=== PATIENT | female | born 1945 | race Caucasian/White ===

== ENCOUNTER 2018-01-30 19:14 | Emergency (ER) | payer BC, MEDICARE ==
[~2018-01-30] VITALS: Ht 167.6 cm; Wt 81.0 kg
[~2018-01-30 19:14] MED LIST: AMLO5TAB2 PO; ASPI81TA23 PO; ESTR0.62 VAGINAL; HYDR12.57 PO; LISI-515 PO; MULTTAB67 PO
[2018-01-30 19:25] VITALS: BP 177/90; PULSE 93; RESP 18; TEMP 99.6; O2SAT 96
--- NOTE | 2018-01-30 19:53 | PD ---
HPI Chief Complaint: Complaint Time Seen by Provider: 19:49 Travel History International Travel<30 days: No Contact w/Intl Traveler<30days: No Traveled to known affect area: No History of Present Illness HPI 72-year-old female patient with history of frequent UTIs, hypertension, presents to the ER today because she states that in the last few days she feels like she has a low-grade fever, notes that her blood pressure was high, and she states that when she does not feel like right right like this, she states that she has a UTI. She denies any abdominal pain, dysuria, vomiting, chest pains, or other symptoms. Modifying Factors: None Associated Signs & Symptoms: Subjective fevers, elevated blood pressure, worried about a UTI Risk Factors: History of frequent UTIs PFSH Past Medical History Arthritis: Yes Blood Disorders: No Anxiety: No Depression: No Cancer: Yes (MELANOMA ABOVE BRA LINE LT SIDE) Cardiovascular Problems: No High Cholesterol: Yes Diabetes: No Endocrine: No Genitourinary: No Hepatitis: No Hiatal Hernia: No Hypertension: Yes Immune Disorder: No Musculoskeletal: Yes (BACK HX BULDGING DISC LOWER BACK) Neurologic: No Psychiatric: No Reproductive: No Respiratory: No Immunizations Current: Yes Thyroid Disease: No Menopausal: Yes Past Surgical History Abdominal Surgery: No Body Medical Devices: NONE Cardiac Surgery: No Ear Surgery: No Endocrine Surgery: No Eye Surgery: Yes (LASER LT EYE) Genitourinary Surgery: No Gynecologic Surgery: Yes (TOTAL HYSTERECTOMY, 2 D&C PRIOR) Hysterectomy: Yes Oral Surgery: No Thoracic Surgery: No Other Surgery: Yes Social History Alcohol Use: No Tobacco Use: No Substance Use: No Allergies-Medications (Allergen,Severity, Reaction): Coded Allergies: diazepam (Unverified Adverse Reaction, Intermediate, 01/30/18) BAD FEELING. "GETS HIGH" Reported Meds & Prescriptions Reported Meds & Active Scripts Active Premarin Vaginal (Estrogens, Conjugated Vaginal) 0.625 Mg/Gm Cream 1 Gm VAGINAL HS Reported Vitamin C (Ascorbic Acid) 250 Mg Tab 1,000 Mg PO BID [Cranberry] 1,000 Mg PO BID Lutein 20 Mg Cap 20 Mg PO DAILY Turmeric (Turmeric Root Extract) 500 Mg Capsule 1,000 Mg PO BID Aspirin EC (Aspirin) 81 Mg Tabdr 81 Mg PO DAILY Hydrochlorothiazide 12.5 Mg Cap 12.5 Mg PO DAILY Lisinopril 20 Mg Tab 20 Mg PO BID Amlodipine (Amlodipine Besylate) 5 Mg Tab 5 Mg PO DAILY Review of Systems Except as stated in HPI: all other systems reviewed are Neg Physical Exam Narrative GENERAL: Well-developed elderly female patient currently in mild distress. Awake and oriented 3. SKIN: Focused skin assessment warm/dry. HEAD: Atraumatic. Normocephalic. EYES: Pupils equal and round. No scleral icterus. No injection or drainage. ENT: No nasal bleeding or discharge. Mucous membranes pink and moist. NECK: Trachea midline. No JVD. Supple. CARDIOVASCULAR: Regular rate and rhythm. No murmur appreciated. RESPIRATORY: No accessory muscle use. Clear to auscultation. Breath sounds equal bilaterally. GASTROINTESTINAL: Abdomen soft, non-tender, nondistended. Hepatic and splenic margins not palpable. MUSCULOSKELETAL: No obvious deformities. No clubbing. No cyanosis. No edema. NEUROLOGICAL: Awake and alert. No obvious cranial nerve deficits. Motor grossly within normal limits. Normal speech. PSYCHIATRIC: Appropriate mood and affect; insight and judgment normal. Data Data Last Documented VS Vital Signs Date Time Temp Pulse Resp B/P (MAP) Pulse Ox O2 Delivery O2 Flow Rate FiO2 01/30/18 22:33 90 143/81 (101) 96 01/30/18 21:11 16 Room Air 01/30/18 19:25 99.6 Orders Orders Urinalysis - C+S If Indicated (01/30/18 19:39) Electrocardiogram (01/30/18 19:49) Complete Blood Count With Diff (01/30/18 19:49) Basic Metabolic Panel (Bmp) (01/30/18 19:49) Troponin I (01/30/18 19:49) Urine Culture (01/30/18 20:05) Chest, Single Ap (01/30/18 21:16) Ct Thorax/ Chest Wo Iv Contras (01/30/18 22:28) Blood Culture (01/30/18 23:04) Labs Laboratory Tests Test 01/30/18 20:05 01/30/18 20:20 Urine Color YELLOW Urine Turbidity CLEAR Urine pH 5.5 Urine Specific Diller 1.010 Urine Protein NEG mg/dL Urine Glucose (UA) NEG mg/dL Urine Ketones NEG mg/dL Urine Occult Blood SMALL Urine Nitrite NEG Urine Bilirubin NEG Urine Urobilinogen 0.2 MG/DL Urine Leukocyte Esterase NEG Urine RBC 3-5 /hpf Urine WBC 3-5 /hpf Urine WBC Clumps FEW Urine Squamous Epithelial Cells 0-5 /hpf Urine Bacteria NONE /hpf Microscopic Urinalysis Comment CULTURE INDICATED White Blood Count 13.6 TH/MM3 Red Blood Count 4.42 MIL/MM3 Hemoglobin 12.8 GM/DL Hematocrit 37.9 % Mean Corpuscular Volume 85.6 FL Mean Corpuscular Hemoglobin 29.0 PG Mean Corpuscular Hemoglobin Concent 33.9 % Red Cell Distribution Width 13.3 % Platelet Count 307 TH/MM3 Mean Platelet Volume 7.6 FL CBC Comment AUTO DIFF Differential Total Cells Counted 100 Neutrophils % (Manual) 79 % Band Neutrophils % 6 % Lymphocytes % 12 % Monocytes % 3 % Neutrophils # (Manual) 11.6 TH/MM3 Differential Comment FINAL DIFF MANUAL Platelet Estimate NORMAL Platelet Morphology Comment NORMAL Red Cell Morphology Comment NORMAL Blood Urea Nitrogen 20 MG/DL Creatinine 0.94 MG/DL Random Glucose 101 MG/DL Calcium Level 8.9 MG/DL Sodium Level 138 MEQ/L Potassium Level 4.5 MEQ/L Chloride Level 103 MEQ/L Carbon Dioxide Level 28.2 MEQ/L Anion Gap 7 MEQ/L Estimat Glomerular Filtration Rate 58 ML/MIN Troponin I LESS THAN 0.02 NG/ML [facility] Medical Decision Making Medical Screen Exam Complete: Yes Emergency Medical Condition: Yes Medical Record Reviewed: Yes Interpretation(s) Laboratory Tests Test 01/30/18 20:05 01/30/18 20:20 Urine Occult Blood SMALL (NEG) Urine WBC Clumps FEW (NONE) White Blood Count 13.6 TH/MM3 (4.0-11.0) Neutrophils % (Manual) 79 % (16-70) Neutrophils # (Manual) 11.6 TH/MM3 (1.8-7.7) Blood Urea Nitrogen 20 MG/DL (7-18) Estimat Glomerular Filtration Rate 58 ML/MIN (>89) Troponin I LESS THAN 0.02 NG/ML Last [address] 01/30/182227 Signed Impressions: Service Date/Time: Tuesday, January 30, 2018 22:39 - CONCLUSION: 1. No acute findings. No lung mass or nodule. 2 cm right thyroid nodule. Mild coronary calcifications. Jayce Julien MD Chest X-Ray [id number]/30/[id number] Signed Impressions: Service Date/Time: Tuesday, January 30, 2018 22:00 - CONCLUSION: 1. Possible nodule upper right lung. Further evaluation with chest CT is recommended. Jayce Julien MD Differential Diagnosis Anxiety attack versus hypertensive urgency versus metabolic issues versus sepsis versus UTI Narrative Course UA is equivocal and is unclear whether she has a UTI or not but she does have some elevated leukocytosis. At this point, lab work was otherwise unremarkable and patient is afebrile. Her blood pressure came down on its own. She states she feels great on reevaluation at 11 PM. Chest x-ray did show a questionable right-sided nodule and CAT scan was ordered for further evaluation. It did not show any signs of nodules or any signs of other acute pulmonary processes. At this point, I have discussed this finding with the patient as well. We have discussed on whether to start her on antibiotics at this time or not, patient has antibiotics at home to take for UTIs. At this point, I will release her and have her start on that and follow-up with Dr. Diallo, her urologist. Return for worsening in symptoms as necessary. The plan has been discussed with her and she states understanding. Diagnosis Primary Impression: UTI (urinary tract infection) Additional Impression: High blood pressure Med/Other Pt SpecificInfo: Prescription(s) given Scripts Nitrofurantoin Monohydrate Macrocrystals (Macrobid) 100 Mg Cap 100 MG PO BID for Infection for 7 Days, #14 CAP 0 Refills Prov: Connor Banegas MD 01/30/18 Disposition: 01 DISCHARGE HOME Condition: Stable Connor Banegas MD Jan 30, 2018 19:53
[2018-01-30 20:25] VITALS: BP 150/86; PULSE 87; RESP 16; O2SAT 94
[2018-01-30 20:28] LABS: BILIRUBIN, URINE NEG (NEG); BLOOD, URINE SMALL (NEG); GLUCOSE,URINE NEG (NEG); KETONE, URINE NEG (NEG); NITRITE,URINE NEG (NEG); PH, URINE 5.5 (5.0-8.5); URINE COLOR YELLOW (YELLW/STRAW); URINE LEUKOCYTE ESTERASE NEG (NEG)
[2018-01-30 20:28] LABS: HEMATOCRIT 37.9 % (35.0-46.0); HEMOGLOBIN 12.8 GM/DL (11.6-15.3); MEAN CELL VOLUME 85.6 FL (80.0-100.0); MEAN CORPUSCULAR HGB CONC 33.9 % (32.0-36.0); MEAN PLATELET VOLUME 7.6 FL (7.0-11.0); PLATELET COUNT 307 TH/MM3 (150-450); RED BLOOD COUNT 4.42 MIL/MM3 (4.00-5.30); RED CELL DISTRIBUTION WIDTH 13.3 % (11.6-17.2); WHITE BLOOD COUNT 13.6 TH/MM3 (4.0-11.0)
[2018-01-30] MEDS ORDERED: VITA250T3 PO (20:28)
[2018-01-30] MEDS ORDERED: CRANCAP2 PO (20:28)
[2018-01-30] MEDS ORDERED: TURM500C7 PO (20:28)
[2018-01-30] MEDS ORDERED: LUTE20CA PO (20:28)
[2018-01-30] MEDS ORDERED: CRANPOW2 PO (20:28)
[2018-01-30 20:33] LABS: SQUAMOUS EPITHELIAL CELL URINE 0-5 /hpf (0-5); WHITE BLOOD CELL CLUMPS FEW
[2018-01-30 20:43] LABS: BANDS 6 % (0-6); LYMPHOCYTES 12 % (9-44); MONOCYTES 3 % (0-8); NEUTROPHIL # MANUAL DIFF 11.6 TH/MM3 (1.8-7.7); POLYS (SEG NEUTROPHILS) 79 % (16-70)
[2018-01-30 20:57] LABS: CHLORIDE 103 MEQ/L (98-107); SODIUM (NA) 138 MEQ/L (136-145)
[2018-01-30 20:59] LABS: CALCIUM 8.9 MG/DL (8.5-10.1)
[2018-01-30 21:00] LABS: BICARBONATE 28.2 MEQ/L (21.0-32.0); BLOOD UREA NITROGEN 20 MG/DL (7-18); GLUCOSE,RANDOM 101 MG/DL (74-106)
[2018-01-30 21:03] LABS: CREATININE 0.94 MG/DL (0.50-1.00); GLOMERULAR FILTRATION RATE 58 ML/MIN (>89)
[2018-01-30 21:08] LABS: TROPONIN I LESS THAN 0.02 NG/ML (0.02-0.05)
[2018-01-30 21:11] VITALS: BP 145/85; PULSE 82; RESP 16; O2SAT 97
--- NOTE | 2018-01-30 22:20 | RADRPT ---
EXAM DATE/TIME: 01/30/2018 22:00 [facility] COMPARISON: No previous studies available for comparison. INDICATIONS : Chest discomfort. Weakness. MEDICAL HISTORY : None. SURGICAL HISTORY : None. ENCOUNTER: Initial ACUITY: 1 day PAIN SCORE: 7/10 LOCATION: Bilateral chest FINDINGS: A single view of the chest demonstrates possible nodule at the right lung apex. Further evaluation wi chest CT recommended. Left lung is clear. No effusion. No pneumothorax. Heart size within normal l imits. Tortuous aorta. CONCLUSION: 1. Possible nodule upper right lung. Further evaluation with chest CT is recommended. Jayce Julien MD on January 30, 2018 at 22:16 Board Certified Radiologist. This report was verified electronically.
[2018-01-30 22:33] VITALS: BP 143/81; PULSE 90; O2SAT 96
--- NOTE | 2018-01-30 22:56 | RADRPT ---
EXAM DATE/TIME: 01/30/2018 22:39 [facility] COMPARISON: No previous studies available for comparison. INDICATIONS : Evaluate for pulmonary nodule in right upper lung. RADIATION DOSE: 11.72 CTDIvol (mGy) MEDICAL HISTORY : Hypertension. SURGICAL HISTORY : None. ENCOUNTER: Initial ACUITY: 1 day PAIN SCALE: 0/10 LOCATION: Right chest TECHNIQUE: Volumetric scanning of the chest was performed. Using automated exposure control and adjustment of t he mA and/or kV according to patient size, radiation dose was kept as low as reasonably achievable to obtain optimal diagnostic quality images. DICOM format image data is available electronically for r eview and comparison. Follow-up recommendations for detected pulmonary nodules are based at a minimum on nodule size and pa tient risk factors according to Fleischner Society Guidelines. FINDINGS: There is no suspicious lung mass or nodule. Findings on chest radiograph represent superimposition. There is a 2 cm right lobe thyroid nodule. No pleural or pericardial effusion. Mild coronary calcifications noted. No acute findings in the upper abdomen. Mild scoliosis. CONCLUSION: 1. No acute findings. No lung mass or nodule. 2 cm right thyroid nodule. Mild coronary calcifications . Jayce Julien MD on January 30, 2018 at 22:49 Board Certified Radiologist. This report was verified electronically.
[2018-01-30] MEDS ORDERED: MACR100C2 PO (23:07)
--- NOTE | 2018-01-31 16:43 | EKG ---
Date Performed: 01/30/2018 Time Performed: 20:12:48 PTAGE: 72 years EKG: Sinus rhythm MODERATE VOLTAGE CRITERIA FOR LVH, CONSIDER NORMAL VARIANT NONSPECIFIC T-WAVE ABNORMALITY Since prev ious tracing, no significant change noted BORDERLINE ECG PREVIOUS TRACING : 05/08/2014 22.41 DOCTOR: Osmany Juarez Interpretating Date/Time 01/31/2018 16:41:30
== END 2018-01-30 23:26 | disposition home or self-care (01) ==
LOC: PHED 19:14
DX: N39.0 Urinary tract infection, site not specified (principal); I10 Essential (primary) hypertension; R94.31 Abnormal electrocardiogram [ECG] [EKG]; E78.00 Pure hypercholesterolemia, unspecified; Z85.820 Personal history of malignant melanoma of skin
CPT/HCPCS: 71045; 71250; 80048; 81001; 84484; 85007; 85027; 87040; 87086; 93005; 99285

== ENCOUNTER 2018-03-07 12:45 | Day surgery (SDC) | payer MEDICARE ==
[~2018-03-07 12:45] MED LIST changes: +CRANPOW2 PO; +LUTE20CA PO; +MACR100C2 PO; -MULTTAB67 PO; +TURM500C7 PO; +VITA250T3 PO
[2018-03-07 14:00] VITALS: BP 171/87; PULSE 65; RESP 20; TEMP 98.1; O2SAT 94
[2018-03-07 14:08] VITALS: BP 171/87; PULSE 65; RESP 18; TEMP 98.1; O2SAT 94
[2018-03-07 14:15] VITALS: BP 153/90; PULSE 64; RESP 20; O2SAT 95
[2018-03-07] MEDS ORDERED: LIDOCAINE HCL 1% 20 ML VIAL ONE (14:15)
--- NOTE | 2018-03-07 14:17 | RADRPT ---
EXAM DATE/TIME: 03/07/2018 13:25 [facility] COMPARISON: No previous studies available for comparison. EXTERNAL COMPARISON: [facility], US THYROID, Feb 17 2018. INDICATIONS : Patient has 2 adjacent thyroid nodules. The larger 2.1 cm complex predominantly solid nodule in the m id right thyroid lobe containing microcalcifications was targeted given presence of more concerning s onographic features. Second nodule is uniformly isoechoic solid without calcifications and measures 1 .9 cm in the inferior right thyroid lobe. MEDICAL HISTORY : Hypercholesterolemia. Arthritis. Migraines. Hyperlipidemia. HTN. UTI. Bulding disc. Pelvis fracture. Herniated disc. Melanoma. Measles. SURGICAL HISTORY : Hysterectomy. Left eye laser. D&C. Left middle finger removal. Melanoma excision from back, face, r ight arm and left knee. ENCOUNTER: Initial ACUITY: 2 weeks PAIN SCORE: 0/10 LOCATION: Right neck ORGAN: Right thyroid lobe SPECIMENS: Three fine needle aspirate(s) submitted for pathologic evaluation. DEVICE: 22 gauge needle Post procedure scanning reveals no hematoma or other complication. The possibility does exist that the tissue obtained will be non-diagnostic. If the sample is non-emanuel gnostic a repeat biopsy or surgical biopsy may need to be performed. TECHNIQUE: 1. Ultrasound guidance for needle biopsy. 2. Needle biopsy. The risks, benefits and alternatives to the procedure were explained and verbal and written consent w as obtained. The site was prepped in sterile fashion. Full sterile technique was used, including ca p, mask, sterile gloves and gown and a large sterile sheet. Hand hygiene and 2% chlorhexidine and/or betadine/alcohol prep was utilized per protocol for cutaneous antisepsis. The skin and subcutaneous tissues were infiltrated with local anesthetic solution. Sterile gel and sterile probe cover were u tilized for ultrasound guidance. With the patient on the ultrasound table, images were obtained. A needle was advanced into the identified target and the number of specimens as above obtained and arguello bmitted for pathologic evaluation. The patient tolerated the procedure well and left the ultrasound suite in stable condition. CONCLUSION: Uncomplicated ultrasound guided needle biopsy of 2.1 cm complex predominantly solid nodule in the mid right thyroid. Abrahan Fry MD on March 07, 2018 at 14:14 Board Certified Radiologist. This report was verified electronically.
== END 2018-03-07 14:46 | disposition home or self-care (01) ==
LOC: HRAD 12:45 → HRIP 12:46 → HRAD 14:46
PROVIDERS: ATTEND Surgery Trauma Surgery
DX: E04.1 Nontoxic single thyroid nodule (principal); E78.00 Pure hypercholesterolemia, unspecified; I10 Essential (primary) hypertension; E78.5 Hyperlipidemia, unspecified; G43.909 Migraine, unspecified, not intractable, without status migrainosus; Z87.440 Personal history of urinary (tract) infections; Z85.820 Personal history of malignant melanoma of skin
CPT/HCPCS: 10022; 76942; 88172; 88173